=== PATIENT | male | born 1985 | race American Indian/Alaskan Native ===

== ENCOUNTER 2016-08-07 18:26 | Emergency (ER) | payer MEDICAID, OTHER ==
[2016-08-07] MEDS ORDERED: NACL 0.9% IR ONE (19:09)
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
[2016-08-07] MEDS ORDERED: MORPHINE IV ONE ×2 (20:25→22:18)
[2016-08-07] MEDS ORDERED: ZOFRAN IV ONE (20:25)
[2016-08-07] MEDS ORDERED: TORADOL IV ONE (20:25)
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
[2016-08-07] MEDS ORDERED: XYLOCAINE 1%/ EPI 1:100,000 INFILTRATI NR (21:00)
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
[2016-08-07 23:37] VITALS: BP 127/83
--- NOTE | 2016-08-08 10:19 | XRay Report ---
BILATERAL FOREARM, 2 VIEWS History: Bilateral arm pain. Findings: Normal bone mineralization. No osseous abnormality or joint pathology is appreciated. Normal soft tissues. Impression: Unremarkable bilateral forearms.
== END 2016-08-07 23:39 | disposition home or self-care (01) ==
LOC: ED 18:26
DX: S01.112A Laceration without foreign body of left eyelid and periocular area, initial encounter (principal); S16.1XXA Strain of muscle, fascia and tendon at neck level, initial encounter; S39.012A Strain of muscle, fascia and tendon of lower back, initial encounter; S50.11XA Contusion of right forearm, initial encounter; V49.9XXA Car occupant (driver) (passenger) injured in unspecified traffic accident, initial encounter; Y93.89 Activity, other specified; Y99.8 Other external cause status; Y92.89 Other specified places as the place of occurrence of the external cause
CPT/HCPCS: 12011; 70450; 71010; 72072; 72100; 72125; 72170; 73090; 96374; 96375; 96376; 99284; J1885; J2270; J2405

== ENCOUNTER 2017-01-21 14:10 | Emergency (ER) | payer MEDICAID, OTHER ==
[2017-01-21 18:04] LABS: Bilirubin,Urine NEG (Negative); Blood,Urine NEG (Negative); Ketones,Urine NEG (Negative); Leukocyte Esterase,Urine NEG (Negative); Mucus,Urine 2+ /HPF; Nitrite,Urine NEG (Negative); Protein,Urine <15 mg/dL mg/dL (Negative)
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
[2017-01-21 18:38] VITALS: BP 122/70
== END 2017-01-21 18:37 | disposition home or self-care (01) ==
LOC: ED 14:10
DX: R21 Rash and other nonspecific skin eruption (principal); R30.0 Dysuria
CPT/HCPCS: 81001; 87591; 99283